=== PATIENT | male | born 1985 | race Asian ===

== ENCOUNTER 2022-08-16 17:12 | Emergency (ER) | payer MEDICAID, OTHER ==
[~2022-08-16] VITALS: Ht 170.2 cm; Wt 85.3 kg
[2022-08-16 17:43] VITALS: BP 194/129
[2022-08-16] MEDS ORDERED: LISI20TA56 PO (20:41)
== END 2022-08-16 23:05 | disposition home or self-care (01) ==
LOC: ER 17:12
DX: I10 Essential (primary) hypertension (principal); M53.3 Sacrococcygeal disorders, not elsewhere classified

== ENCOUNTER 2023-03-14 19:18 | Emergency (ER) | payer MEDICAID ==
[~2023-03-14 19:18] MED LIST: LISI20TA56 PO
== END 2023-03-14 20:06 | disposition left against medical advice (07) ==
LOC: ER 19:18
DX: R05.9 Cough, unspecified (principal); Z53.21 Procedure and treatment not carried out due to patient leaving prior to being seen by health care provider

== ENCOUNTER 2024-09-20 16:33 | Emergency (ER) | payer OTHER, MEDICAID ==
[~2024-09-20] VITALS: Ht 170.2 cm; Wt 85.6 kg
--- NOTE | 2024-09-20 16:54 | ED.PDOC ---
History of Present Illness HPI Comments 39 year old male with a Hx of HTN presents to the ED for the c/c of a Cough with an associated Runny Nose and slight SOB. Pt states that his symptoms have been onset for the past 1x week with no alleviating factors. Pt was also noted to have a BP of 202/135 upon triage assessment. Pt does states that he has been compliant with his BP medication, but his blood pressure has still been poorly controlled. No other associated symptoms, modifiers, recent injuries or sick contacts present at this time. Chief Complaint: Cough Time Seen by MD: 16:51 Primary Care Provider: ELIZABETH Reviewed Notes: Nurses Notes, Medications, Allergies Allergies: Coded Allergies: NO KNOWN ALLERGIES (Unverified , 12/14/10) Home Meds Active Scripts Clonidine Hydrochloride (Clonidine Hcl) 0.2 Mg Tab, 1 TAB PO BIDP PRN, #10 TAB 0 Refills To be used if systolic blood pressure is above 160 or diastolic pressure is above 90 Prov:PARVEEN DELACRUZ PAC 09/20/24 Benzonatate (Benzonatate) 100 Mg Cap, 1 CAP PO Q8HP PRN, #20 CAP Prov:PARVEEN DELACRUZ PAC 09/20/24 Loratadine (Claritin) 10 Mg Tab, 1 TAB PO DAILY for 10 Days, #10 TAB 0 Refills Prov:PARVEEN DELACRUZ 09/20/24 Lisinopril (Lisinopril) 20 Mg Tab, 1 TAB PO DAILY, #30 TAB 5 Refills Prov:JEANNETTE PURCELL DO 08/16/22 Information Source: Patient Mode of Arrival: Ambulatory Severity: Mild Timing: Weeks Prehospital treatment: None Past Medical History PAST MEDICAL HISTORY: HTN Surgical History: Appendectomy Family History Family History: Unknown Social History Smoker: Non-Smoker Alcohol: Denies ETOH Use Drugs: Denies Drug Use Lives In: Home Constitutional: denies: chills, diaphoresis, fatigue, fever, malaise, sweats, weakness, others EENTM: denies: blurred vision, double vision, ear bleeding, ear discharge, ear drainage, ear pain, ear ringing, eye pain, eye redness, hearing loss, mouth pain, mouth swelling, nasal discharge, nose bleeding, nose congestion, nose pain, photophobia, tearing, throat pain, throat swelling, voice changes, others Respiratory: reports: cough, SOB at rest, shortness of breath; denies: hemoptysis, orthopnea, SOB with excertion, stridor, wheezing, others Cardiovascular: denies: chest pain, dizzy spells, diaphoresis, Dyspnea on exertion, edema, irregular heart beat, left arm pain, lightheadedness, palpitations, PND, syncope, others Gastrointestinal: denies: abdomen distended, abdominal pain, blood streaked bowels, constipated, diarrhea, dysphagia, difficulty swallowing, hematemesis, melena, nausea, poor appetite, poor fluid intake, rectal bleeding, rectal pain, vomiting, others Genitourinary: denies: burning, dysuria, flank pain, frequency, hematuria, incontinence, penile discharge, penile sore, pain, testicle pain, testicle swelling, urgency, others Neurological: denies: dizziness, fainting, headache, left sided numbness, left sided weakness, numbness, paresthesia, pre-existing deficit, right sided numbness, right sided weakness, seizure, speech problems, tingling, tremors, weakness, others Musculoskeletal: denies: back pain, gout, joint pain, joint swelling, muscle pain, muscle stiffness, neck pain, others Integumetry: denies: bruises, change in color, change in hair/nails, dryness, laceration, lesions, lumps, rash, wounds, others Allergic/Immunocompromised: denies: Difficulty Healing, Frequent Infections, Hives, Itching, others Hematologic/Lymphatic: denies: anemia, blood clots, easy bleeding, easy bruising, swollen glands, others Endocrine: denies: excessive hunger, excessive sweating, excessive thirst, excessive urination, flushing, intolerance to cold, intolerance to heat, une xplained weight gain, unexplained weight loss, others Psychiatric: denies: anxiety, bipolar disorder, depression, hopeless, panic disorder, schizophrenia, sleepless, suicidal, others All Other Systems: Reviewed and Negative Physical Exam General Appearance: Mild Distress (Patient has a mild discomfort due to his chief complaints. Patient did not look toxic. No signs of respiratory distress.), Normal HEENT: Normal ENT Inspection, Pharynx Normal, TMs Normal Neck: Full Range of Motion, Non-Tender, Normal, Normal Inspection Respiratory: Chest Non-Tender, Lungs Clear, No Accessory Muscle Use, No Respiratory Distress, Normal Breath Sounds Cardiovascular: No Edema, No JVD, No Murmur, No Gallop, Normal Peripheral Pulses, Tachycardia Breast Exam: Deferred Gastrointestinal: No Organomegaly, Non Tender, No Pulsatile Mass, Normal Bowel Sounds, Soft Genitalia: Deferred Pelvic: Deferred Rectal: Deferred Extremities: No calf tenderness, Normal capillary refill, Normal inspection, Normal range of motion, Non-tender, No pedal edema Musculoskeletal : Apperance: Normal Neurologic: Alert, No Motor Deficits, Normal Affect, Normal Mood, No Sensory Deficits Cerebellar Function: Normal Reflexes: Normal Skin: Dry, Normal Color, Warm Lymphatic: No Adenopathy Was a procedure done? Was a procedure done?: No Differential Dx Considerations may include: Pneumonia, viral upper respiratory illness, CHF, hypertensive urgency X-Ray, Labs, Meds, VS Vital Signs Date Time Temp Pulse Resp B/P (MAP) Pulse Ox O2 Delivery O2 Flow Rate FiO2 09/20/24 19:17 82 13 138/100 (113) 96 09/20/24 19:14 138/100 09/20/24 18:33 94 17 176/134 (148) 95 09/20/24 18:32 176/134 09/20/24 18:20 176/134 09/20/24 18:16 94 09/20/24 17:42 202/137 09/20/24 17:40 108 13 97 Room Air* 0 21 09/20/24 17:40 98.5 108 13 202/137 (158) 97 98.5 09/20/24 16:40 18 96 Room Air* 0 21 09/20/24 16:40 97.9 113 18 202/135 (157) 96 97.9 Lab Test 09/20/24 17:13 Range/Units White Blood Count 7.6 4.4-10.8 10^3/uL Red Blood Count 5.56 4.5-5.90 10^6/uL Hemoglobin 17.9 H 13.5-17.5 g/dL Hematocrit 52.7 41.0-53.0 % Mean Corpuscular Volume 94.7 80.0-100.0 fL Mean Corpuscular Hemoglobin 32.2 H 28.0-32.0 pg Mean Corpuscular Hemoglobin Concent 34.0 32.0-36.0 g/dL Red Cell Distribution Width 13.9 11.8-14.3 % Platelet Count 195 140-450 10^3/uL Mean Platelet Volume 9.1 6.9-10.8 fL Neutrophils (%) (Auto) 58.1 37.0-80.0 % Lymphocytes (%) (Auto) 31.6 10.0-50.0 % Monocytes (%) (Auto) 6.8 0.0-12.0 % Eosinophils (%) (Auto) 2.6 0.0-7.0 % Basophils (%) (Auto) 0.9 0.0-2.0 % Neutrophils # (Auto) 4.4 1.6-8.6 10 ^3/uL Lymphocytes # (Auto) 2.4 0.4-5.4 10 ^3/uL Monocytes # (Auto) 0.5 0-1.3 10 ^3/uL Eosinophils # (Auto) 0.2 0-0.8 10 ^3/uL Basophils # (Auto) 0.1 0-0.2 10 ^3/uL Nucleated Red Blood Cells 0.2 % Sodium Level 143 136-145 mmol/L Potassium Level 4.5 3.5-5.1 mmol/L Chloride Level 109 H 98-107 mmol/L Carbon Dioxide Level 26 20-31 mmol/L Anion Gap 8 5-15 Blood Urea Nitrogen 16 9-23 mg/dL Creatinine 1.15 0.700-1.30 mg/dL Glomerular Filtration Rate Calc 82 >90 mL/min BUN/Creatinine Ratio 13.9 10.0-20.0 Serum Glucose 100 74-106 mg/dL Calcium Level 9.6 8.7-10.4 mg/dL Troponin I High Sensitivity 9 </=54 ng/L B-Type Natriuretic Peptide 49.48 0-100 pg/mL Current Medications Medications (Trade) Dose Ordered Sig/Lex Route Start Time Stop Time Status Last Admin Clonidine HCl (Catapres Tablet) 0.2 mg ONCE ONCE PO 09/20/24 17:00 09/20/24 17:01 DC 09/20/24 17:42 Acetaminophen (Tylenol Tablet) 1,000 mg ONCE ONCE PO 09/20/24 18:30 09/20/24 18:31 DC 09/20/24 18:31 Clonidine HCl (Catapres Tablet) 0.2 mg ONCE ONCE PO 09/20/24 18:30 09/20/24 18:31 DC 09/20/24 18:32 PATIENT: SANDRA,RHONERT ACCT: [id number] UNIT: [id number] : 1985 LOC: ER ROOM / BED: / AGE / SEX: 39 / M ADM STATUS: REG ER SERVICE 1646 ORDERING PHYSICIAN: PARVEEN DELACRUZ PAC PROCEDURE(s): CXRP - CHEST PORTABLE REASON: Cough ORDER NUMBER(s): [id number], ACCESSION NUMBER(s): [id number] CHEST RADIOGRAPH Indication: Cough Technique: Single frontal view of the chest was obtained COMPARISON: None FINDINGS: Lines and Tubes: None Lungs: Increased interstitial prominence Pleura: No effusion. No pneumothorax. Cardiomediastinal contours: Cardiomegaly Bones: Unremarkable IMPRESSION: Pulmonary vascular congestion or viral pneumonia X-Ray, Labs, Meds, VS Comment All studies performed the ED were evaluated by me personally. Serum studies were unremarkable for any concerning systemic issues including relatively unremarkable BNP evaluation. EKG revealed a sinus rhythm with a rate of 94. Biatrial enlargement was noted as well as right axis deviation. What appears to be a normal early repolarization pattern was noted. GA interval of 154 and QT interval of 370. Chest x-ray reveals what appears to be a viral illness. Blood pressure was returning to an acceptable zone at time of discharge. Advised patient that I was concerned of his poorly controlled blood pressure. Patient will be sent home with some clonidine to address any emergent concerns, but the patient has been advised of the need to follow up with the primary care provider for discussions related to improved blood pressure management. Time of 1ST Reevaluation: 18:17 Reevaluation 1ST: Improved Consultation: PCP Patient Education/Counseling: Diagnosis, Treatment, Need For Follow Up Family Education/Counseling: Diagnosis, Treatment, No Family Present SEPSIS Sepsis Screen Recent Procedure: No On Antibiotic Therapy: No Heart Rate >90: Yes SBP <90 or MAP <65 mmHG: Yes New Acute Mental Status Change: No Is the patient on CPAP, BIPAP,: No IV fluid challenge completed?: No Physician Orders Chest Portable (09/20/24 16:46) Electrocardigram (09/20/24 16:46) Vital Signs Date Time Temp Pulse Resp B/P (MAP) Pulse Ox O2 Delivery O2 Flow Rate FiO2 09/20/24 19:17 82 13 138/100 (113) 96 09/20/24 19:14 138/100 09/20/24 18:33 94 17 176/134 (148) 95 09/20/24 18:32 176/134 09/20/24 18:20 176/134 09/20/24 18:16 94 09/20/24 17:42 202/137 09/20/24 17:40 108 13 97 Room Air* 0 21 09/20/24 17:40 98.5 108 13 202/137 (158) 97 98.5 09/20/24 16:40 18 96 Room Air* 0 21 09/20/24 16:40 97.9 113 18 202/135 (157) 96 97.9 Laboratory Tests Test 09/20/24 17:13 White Blood Count 7.6 10^3/uL (4.4-10.8) Medications Medications Dose Ordered Sig/Lex Route Start Time Stop Time Status Last Admin Dose Admin Acetaminophen 1,000 mg ONCE ONCE PO 09/20/24 18:30 09/20/24 18:31 DC 09/20/24 18:31 Clonidine HCl 0.2 mg ONCE ONCE PO 09/20/24 17:00 09/20/24 17:01 DC 09/20/24 17:42 Clonidine HCl 0.2 mg ONCE ONCE PO 09/20/24 18:30 09/20/24 18:31 DC 09/20/24 18:32 Departure 1 Departure Time of Disposition: 18:18 Impression: Primary Impression: Viral upper respiratory illness Additional Impression: Poorly-controlled hypertension Disposition: HOME / SELF CARE / HOMELESS Condition: Stable Additional Instructions: Advise utilizing Claritin as directed until completion. Patient should utilize the clonidine as needed. Patient has been advised of the need to follow up with the primary care provider for discussions related to improved blood pressure management. e-Prescriptions Clonidine Hydrochloride (Clonidine Hcl) 0.2 Mg Tab 1 TAB PO BIDP PRN, #10 TAB 0 Refills To be used if systolic blood pressure is above 160 or diastolic pressure is above 90 Prov: PARVEEN DELACRUZ PAC 09/20/24 Benzonatate (Benzonatate) 100 Mg Cap 1 CAP PO Q8HP PRN, #20 CAP Prov: PARVEEN DELACRUZ PAC 09/20/24 Loratadine (Claritin) 10 Mg Tab 1 TAB PO DAILY for 10 Days, #10 TAB 0 Refills Prov: PARVEEN DELACRUZ PAC 09/20/24 Discharged With: Self, Friend Critical Care Note Critical Care Time?: No Stability Stability form required: No Heart Score Heart Score: Heart Score Response (Comments) Value History Slightly Suspicious 0 EKG Repolarization Disturb 1 Age 45-64 1 Risk Factors 1 or 2 risk factors 1 Troponin Normal limit 0 Total 3 I personally scribed for PARVEEN DELACRUZ PAC ([email or web address]) on 09/20/24 at 16:54. Electronically submitted by Valdo Retana ([email or web address]). I personally scribed for PARVEEN DELACRUZ PAC ([email or web address]) on 09/20/24 at 16:55. Electronically submitted by Valdo Retana ([email or web address]). I personally scribed for PARVEEN DELACRUZ PAC ([email or web address]) on 09/20/24 at 17:28. Electronically submitted by Valdo Retana ([email or web address]). PARVEEN DELACRUZ PAC Sep 20, 2024 16:54
--- NOTE | 2024-09-20 17:13 | DVH ---
CHEST RADIOGRAPH Indication: Cough Technique: Single frontal view of the chest was obtained COMPARISON: None FINDINGS: Lines and Tubes: None Lungs: Increased interstitial prominence Pleura: No effusion. No pneumothorax. Cardiomediastinal contours: Cardiomegaly Bones: Unremarkable IMPRESSION: Pulmonary vascular congestion or viral pneumonia
[2024-09-20 17:40] VITALS: PULSE 108; RESP 13; TEMP 98.5; O2SAT 97
[2024-09-20 17:40] LABS: Potassium 4.5 mmol/L (3.5-5.1); Sodium 143 mmol/L (136-145)
[2024-09-20 17:41] LABS: Anion Gap 8 (5-15); Carbon Dioxide 26 mmol/L (20-31)
[2024-09-20 17:42] LABS: Calcium 9.6 mg/dL (8.7-10.4); Hemoglobin 17.9 g/dL (13.5-17.5)
[2024-09-20 17:44] LABS: Hematocrit 52.7 % (41.0-53.0); Mean Corpuscular Hemoglobin 32.2 pg (28.0-32.0); Mean Corpuscular Volume 94.7 fL (80.0-100.0); Nucleated Red Blood Cells % 0.2 %
[2024-09-20 17:46] LABS: Glucose 100 mg/dL (74-106)
[2024-09-20 17:47] LABS: BUN/Creatinine Ratio 13.9 (10.0-20.0); Blood Urea Nitrogen 16 mg/dL (9-23); Chloride 109 mmol/L (98-107)
[2024-09-20] MEDS ORDERED: LORA-622 PO (18:20)
[2024-09-20] MEDS ORDERED: BENZ100C97 PO (18:20)
[2024-09-20] MEDS ORDERED: CLON0.2T PO (18:20)
[2024-09-20] MEDS: ACETAMINOPHEN 325 MG TAB PO ONE (18:31)
[2024-09-20 19:17] VITALS: BP 138/100; PULSE 82; RESP 13; O2SAT 96
--- NOTE | 2024-09-21 06:41 | ECG ---
[facility] Test Date: 2024-09-20 Test Time: 18:16:00 Pat Name: MIC FLORES Department: ER Room: Gender: M Adjunct Faculty Instructor: JOSE RAMON : 1985 Requested By: PARVEEN DELACRUZ Order Number: [id number] Reading MD: Measurements Intervals [place] Rate: 94 P: 56 MN: 154 QRS: 111 QRSD: 101 T: 43 QT: 370 QTc: 463 Interpretive Statements Sinus rhythm Biatrial enlargement Right axis deviation ST elev, probable normal early repol pattern Please click the below link to view image of tracing.
== END 2024-09-20 19:29 | disposition home or self-care (01) ==
LOC: ER 16:33
DX: J06.9 Acute upper respiratory infection, unspecified (principal); B97.89 Other viral agents as the cause of diseases classified elsewhere; I10 Essential (primary) hypertension; Z90.49 Acquired absence of other specified parts of digestive tract; Z79.899 Other long term (current) drug therapy
CPT/HCPCS: 36415; 71045; 80048; 83880; 84484; 85025; 93005

== ENCOUNTER 2024-11-29 21:45 | Emergency (ER) | payer OTHER, MEDICAID ==
[~2024-11-29] VITALS: Ht 175.3 cm; Wt 84.0 kg
[~2024-11-29 21:45] MED LIST changes: +BENZ100C97 PO; +CLON0.2T PO; +LORA-622 PO
[2024-11-30] MEDS: HYDROcodone-ACET 10/325MG TAB PO ONE (01:48)
[2024-11-30 01:49] VITALS: TEMP 98.1
[2024-11-30] MEDS ORDERED: CLON0.2T PO (02:23)
--- NOTE | 2024-11-30 02:23 | ED.PDOC ---
Antoine. trauma (HPI) HPI Comments This patient is a 39-year-old male who arrives the ED today for evaluation of a right-sided lower back and left-sided thigh injuring concerns status post fall at work approximately 1 hour prior to arrival. Patient states he slipped at work and fell backwards striking a chair and landing on the floor. Patient denies any head trauma or loss of consciousness. Concerning at arrival was the patient's blood pressure which was 214/145. Patient is able to ambulate. Chief Complaint: Fall Injury Time Seen by MD: 21:51 Primary Care Provider: ELIZABETH Reviewed notes: Nurses Notes Allergies: Coded Allergies: NO KNOWN ALLERGIES (Unverified , 12/14/10) Home Meds Active Scripts Clonidine Hydrochloride (Clonidine Hcl) 0.2 Mg Tab, 1 TAB PO BIDP PRN, #10 TAB 0 Refills To be used if systolic blood pressure is above 160 or diastolic pressure is above 90 Prov:PARVEEN DELACRUZ PAC 09/20/24 Benzonatate (Benzonatate) 100 Mg Cap, 1 CAP PO Q8HP PRN, #20 CAP Prov:PARVEEN DELACRUZ PAC 09/20/24 Loratadine (Claritin) 10 Mg Tab, 1 TAB PO DAILY for 10 Days, #10 TAB 0 Refills Prov:PARVEEN DELACRUZ PAC 09/20/24 Lisinopril (Lisinopril) 20 Mg Tab, 1 TAB PO DAILY, #30 TAB 5 Refills Prov:JEANNETTE PURCELL DO 08/16/22 Information Source: Patient Mode of Arrival: Ambulatory Severity: Moderate Timing: Hours Duration: Since onset Prehospital treatment: None Location: Back, (L) Leg Location of laceration: None Mechanism: Fall Past Medical History PAST MEDICAL HISTORY: HTN Surgical History: Appendectomy Family History Family History: Unknown Social History Smoker: Non-Smoker Alcohol: Denies ETOH Use Drugs: Denies Drug Use Lives In: Home Constitutional: denies: chills, diaphoresis, fatigue, fever, malaise, sweats, weakness, others EENTM: denies: blurred vision, double vision, ear bleeding, ear discharge, ear drainage, ear pain, ear ringing, eye pain, eye redness, hearing loss, mouth pain, mouth swelling, nasal discharge, nose bleeding, nose congestion, nose pain, photophobia, tearing, throat pain, throat swelling, voice changes, others Respiratory: denies: cough, hemoptysis, orthopnea, SOB at rest, shortness of breath, SOB with excertion, stridor, wheezing, others Cardiovascular: denies: chest pain, dizzy spells, diaphoresis, Dyspnea on exertion, edema, irregular heart beat, left arm pain, lightheadedness, palpitations, PND, syncope, others Gastrointestinal: denies: abdomen distended, abdominal pain, blood streaked bowels, constipated, diarrhea, dysphagia, difficulty swallowing, hematemesis, melena, nausea, poor appetite, poor fluid intake, rectal bleeding, rectal pain, vomiting, others Genitourinary: denies: burning, dysuria, flank pain, frequency, hematuria, incontinence, penile discharge, penile sore, pain, testicle pain, testicle swelling, urgency, others Neurological: denies: dizziness, fainting, headache, left sided numbness, left sided weakness, numbness, paresthesia, pre-existing deficit, right sided numbness, right sided weakness, seizure, speech problems, tingling, tremors, weakness, others Musculoskeletal: reports: back pain, others (Lateral leg pain); denies: gout, joint pain, joint swelling, muscle pain, muscle stiffness, neck pain Integumetry: denies: bruises, change in color, change in hair/nails, dryness, laceration, lesions, lumps, rash, wounds, others Allergic/Immunocompromised: denies: Difficulty Healing, Frequent Infections, Hives, Itching, others Hematologic/Lymphatic: denies: anemia, blood clots, easy bleeding, easy bruising, swollen glands, others Endocrine: denies: excessive hunger, excessive sweating, excessive thirst, excessive urination, flushing, intolerance to cold, intolerance to heat, unexplained weight gain, unexplained weight loss, others Psychiatric: denies: anxiety, bipolar disorder, depression, hopeless, panic disorder, schizophrenia, sleepless, suicidal, others Physical Exam General Appearance: Mild Distress (Moderate distress due to back pain and leg pain concerns.), Normal HEENT: Normal ENT Inspection, Pharynx Normal, TMs Normal Neck: Full Range of Motion, Non-Tender, Normal, Normal Inspection Respiratory: Chest Non-Tender, Lungs Clear, No Accessory Muscle Use, No Respiratory Distress, Normal Breath Sounds Cardiovascular: No Edema, No JVD, No Murmur, No Gallop, Normal Peripheral Pulses, Regular Rate/Rhythm Breast Exam: Deferred Gastrointestinal: No Organomegaly, Non Tender, No Pulsatile Mass, Normal Bowel Sounds, Soft Genitalia: Deferred Pelvic: Deferred Rectal: Deferred Extremities: Other (Unremarkable of the lateral left leg concerns. No edema or ecchymosis noted. Tender to palpation. Distal neurovascularly intact. Patient is able to bear weight.) Musculoskeletal : Location: Right Extremity Location: Back (Right-sided lower back in and around the CVA region was relatively unremarkable. No signs of trauma. Tenderness to palpation without edema or ecchymosis.) Apperance: Normal Neurologic: Alert, No Motor Deficits, Normal Affect, Normal Mood, No Sensory Deficits Cerebellar Function: NOT DONE Reflexes: NOT DONE Skin: Dry, Normal Color, Warm Lymphatic: No Adenopathy Was a procedure done? Was a procedure done?: No Differential Diagnosis Multiple Trauma: Other (Back contusion, leg contusion, hypertensive urgency) X-Ray, Labs, Meds, VS Vital Signs Date Time Temp Pulse Resp B/P (MAP) Pulse Ox O2 Delivery O2 Flow Rate FiO2 11/30/24 02:04 167/109 11/30/24 01:49 98.1 87 18 184/123 (143) 99 98.1 11/29/24 22:01 214/145 11/29/24 21:49 97.8 100 16 214/145 97 97.8 Current Medications Medications (Trade) Dose Ordered Sig/Lex Route Start Time Stop Time Status Last Admin Clonidine HCl (Catapres Tablet) 0.2 mg ONCE ONCE PO 11/29/24 22:00 11/29/24 22:01 DC 11/29/24 22:01 Acetaminophen/ Hydrocodone Bitart (Vici 10/325MG Tab) 1 tab ONCE ONCE PO 11/29/24 22:15 11/29/24 22:16 DC 11/30/24 01:48 Clonidine HCl (Catapres Tablet) 0.2 mg ONCE ONCE PO 11/30/24 02:00 11/30/24 02:01 DC 11/30/24 02:04 X-Ray, Labs, Meds, VS Comment Advised patient should physical findings no additional imaging studies were required. At time of this note, urine was pending evaluation for any kidney laceration concerns. Patient's blood pressure was being medicated as we speak. Patient has had marked improvement foot is still not in an acceptable range for discharge. Patient care will be transferred to Dr. Wilson for continued evaluation and management. Time of 1ST Reevaluation: 02:20 Reevaluation 1ST: Improved Consultation: PCP, Cardiology Patient Education/Counseling: Diagnosis, Treatment Family Education/Counseling: Diagnosis, Treatment Departure 1 Departure Time of Disposition: 02:21 Impression: Primary Impression: Back contusion Additional Impressions: Contusion of leg Hypertensive urgency Disposition: HOME / SELF CARE / HOMELESS Condition: Stable Additional Instructions: Advised patient utilize medication as needed for symptomatic relief. Patient should follow up with the primary care provider for discussions related to today's visit and improved medication management of his currently poorly controlled hypertension. e-Prescriptions Clonidine Hydrochloride (Clonidine Hcl) 0.2 Mg Tab 1 TAB PO Q12HP PRN, #20 TAB 0 Refills To be used if systolic pressure is above 160 or diastolic pressure is above 90. Prov: PARVEEN DELACRUZ 11/30/24 Discharged With: Self, Friend Critical Care Note Critical Care Time?: No Stability Stability form required: No Heart Score Heart Score: Heart Score Response (Comments) Value History N/A 0 EKG N/A 0 Age N/A 0 Risk Factors N/A 0 Troponin N/A 0 Total 0 PARVEEN DELACRUZ PAC Nov 30, 2024 02:23
[2024-11-30 02:38] VITALS: BP 165/126; PULSE 92; RESP 18; O2SAT 99
[2024-11-30 03:33] LABS: Urine Protein, UAD TRACE (Negative)
== END 2024-11-30 03:58 | disposition home or self-care (01) ==
LOC: ER 21:45
DX: S20.229A Contusion of unspecified back wall of thorax, initial encounter (principal); S80.10XA Contusion of unspecified lower leg, initial encounter; I16.0 Hypertensive urgency; Z90.49 Acquired absence of other specified parts of digestive tract; Z79.899 Other long term (current) drug therapy; W01.190A Fall on same level from slipping, tripping and stumbling with subsequent striking against furniture, initial encounter; Y93.89 Activity, other specified; Y92.89 Other specified places as the place of occurrence of the external cause; Y99.8 Other external cause status
CPT/HCPCS: 81001

== ENCOUNTER 2024-12-19 19:16 | Emergency (ER) | payer OTHER, MEDICAID ==
[~2024-12-19] VITALS: Ht 170.2 cm; Wt 84.0 kg
[2024-12-19] MEDS: LIDOCAINE 1% HCL (LOCAL ANESTH.) INJ 20ML MDV ID ONE (20:07)
--- NOTE | 2024-12-19 20:25 | ED.PDOC ---
HPI Comments 39-year-old male presents to the ED chief complaint laceration to left hand 3rd digit. Patient states proximally 50 minutes prior to arrival and main triage she was cutting bed she is sliced the tip of his 3rd digit left finger. Was seen at [place] urgent [facility] attempted cauterization to stop bleeding however was unsuccessful. Patient rates pain 8/10 on pain scale tip of the finger. Denies numbness or weakness. Chief Complaint: Laceration Time Seen by MD: 19:35 Primary Care Provider: ELIZABETH Gan Notes: Nurses Notes, Medications, Allergies Allergies: Coded Allergies: NO KNOWN ALLERGIES (Unverified , 12/14/10) Home Meds Active Scripts Clonidine Hydrochloride (Clonidine Hcl) 0.2 Mg Tab, 1 TAB PO Q12HP PRN, #20 TAB 0 Refills To be used if systolic pressure is above 160 or diastolic pressure is above 90. Prov:PARVEEN DELACRUZ PAC 11/30/24 Clonidine Hydrochloride (Clonidine Hcl) 0.2 Mg Tab, 1 TAB PO BIDP PRN, #10 TAB 0 Refills To be used if systolic blood pressure is above 160 or diastolic pressure is above 90 Prov:PARVEEN DELACRUZ PAC 09/20/24 Benzonatate (Benzonatate) 100 Mg Cap, 1 CAP PO Q8HP PRN, #20 CAP Prov:PARVEEN DELACRUZ PAC 09/20/24 Loratadine (Claritin) 10 Mg Tab, 1 TAB PO DAILY for 10 Days, #10 TAB 0 Refills Prov:PARVEEN DELACRUZ PAC 09/20/24 Lisinopril (Lisinopril) 20 Mg Tab, 1 TAB PO DAILY, #30 TAB 5 Refills Prov:JEANNETTE PURCELL DO 08/16/22 Information Source: Patient Mode of Arrival: Ambulatory Complexity: Intermediate Laceration Length (cm): 2 Past Medical History PAST MEDICAL HISTORY: HTN Surgical History: Appendectomy Family History Family History: Unknown Social History Smoker: Non-Smoker Alcohol: Denies ETOH Use Drugs: Denies Drug Use Lives In: Home All Other Systems: Reviewed and Negative (see hpi) Physical Exam General Appearance: No Apparent Distress, Normal HEENT: Pharynx Normal Neck: Full Range of Motion, Non-Tender Respiratory: Lungs Clear, No Respiratory Distress, Normal Breath Sounds Cardiovascular: No Murmur, Normal Peripheral Pulses, Regular Rate/Rhythm Breast Exam: Deferred Gastrointestinal: Non Tender, Soft Genitalia: Deferred Pelvic: Deferred Rectal: Deferred Extremities: Normal capillary refill, Normal range of motion, No pedal edema Musculoskeletal : Apperance: Normal Neurologic: Alert, No Motor Deficits, Normal Affect, Normal Mood, No Sensory Deficits Cerebellar Function: Normal Reflexes: NOT DONE Skin: Dry, Lacerations (Complete avulsion to distal aspect of the 3rd digit left hand some noted bleeding strength sensory motion intact cap refill less than 3 seconds.), Normal Color, Warm Lymphatic: No Adenopathy Was a procedure done? Was a procedure done?: Yes Sedation Sedation?: No Informed consent obtained: Yes Laceration Repair : Location Distal phalanx 3rd digit left hand Length Avulsion approximate 1 cm x 1 cm Anesthetic: Lidocaine, Without epi, Digital nerve block Laceration Repair Prep: Saline, Betadine, by Irrigation Laceration Repair Wound Comple: subcut tissue repair Laceration Repair: Skin, Non-adherent gauze, Gauze Informed consent obtained: Yes Risks, benefits, and alternati: Yes Notes Surgicel utilized with pressure dressing patient tolerated well with minimal blood loss bleeding stopped Differential diagnosis Generic Laceration: Fracture, Retained Foriegn Body, Neurovascular Injury, Tendon Injury, Abrasion/Contusion, Laceration, Avulsion, Amputation X-Ray, Labs, Meds, VS Vital Signs Date Time Temp Pulse Resp B/P (MAP) Pulse Ox O2 Delivery O2 Flow Rate FiO2 12/19/24 19:38 206/146 12/19/24 19:17 97.0 84 18 206/146 97 97.0 Current Medications Medications (Trade) Dose Ordered Sig/Lex Route Start Time Stop Time Status Last Admin Clonidine HCl (Catapres Tablet) 0.2 mg ONCE ONCE PO 12/19/24 19:30 12/19/24 19:31 DC 12/19/24 19:38 X-Ray, Labs, Meds, VS Comment See procedure note. Tdap given Patient given clonidine 0.1 for blood pressure patient states history of blood pressure takes clonidine 0.1 daily in the morning. He reports no chest pain dizziness chest pain or difficulty breathing. Patient states he would like to be discharged in take his clonidine when he gets home another dose. Advised to follow up with his PCP monitor his blood pressure and bring a journal consider m edication adjustment. Advised on ER return precautions patient indicates understanding agrees with discharge plan of care post wound care provided. Time of 1ST Reevaluation: 19:35 Reevaluation 1ST: Unchanged Time of 2ND Reevaluation: 20:23 Reevaluation 2ND: Improved Patient Education/Counseling: Diagnosis, Treatment, Prognosis, Need For Follow Up Family Education/Counseling: No Family Present Departure 1 Departure Time of Disposition: 20:23 Impression: Primary Impression: Fingernail avulsion, complete Qualified Codes: S61.309A - Unspecified open wound of unspecified finger with damage to nail, initial encounter Additional Impression: Poorly-controlled hypertension Disposition: 01 HOME / SELF CARE / HOMELESS Condition: Stable Discharged With: Self Critical Care Note Critical Care Time?: No Stability Stability form required: FLOR Patino Dec 19, 2024 20:25
[2024-12-19] MEDS: TETANUS-DIPTH-ACEL PERTUSSIS 0.5ML SYR Tdap IM ONE (20:27)
[2024-12-19 20:52] VITALS: BP 195/137; PULSE 84; RESP 18; TEMP 97.8; O2SAT 97
== END 2024-12-19 20:51 | disposition home or self-care (01) ==
LOC: ER 19:16
DX: S61.313A Laceration without foreign body of left middle finger with damage to nail, initial encounter (principal); I10 Essential (primary) hypertension; Z90.49 Acquired absence of other specified parts of digestive tract; Z79.899 Other long term (current) drug therapy; Z23 Encounter for immunization; W45.8XXA Other foreign body or object entering through skin, initial encounter; Y93.89 Activity, other specified; Y92.89 Other specified places as the place of occurrence of the external cause; Y99.8 Other external cause status
CPT/HCPCS: 64450; 90471; 90715; 99284; J2003; 11730; 12041